=== PATIENT | male | born 1995 | race Caucasian/White ===

== ENCOUNTER 2016-04-26 07:36 | Emergency (ER) | payer BC ==
[~2016-04-26] VITALS: Ht 185.4 cm; Wt 109.1 kg
[2016-04-26 07:40] VITALS: TEMP 98.2
[2016-04-26] MEDS ORDERED: UNKNOWN ANTIBIOTIC (07:43)
[2016-04-26 08:28] LABS: BASO # 0.1 (0.0-0.2); BASO % 0.9 % (0.0-2.0); EOS # 0.1 (0.0-0.7); GRAN # 3.1 (1.4-6.5); GRAN % 54.4 % (42.2-75.2); HEMOGLOBIN 15.9 g/dl (13.5-18.0); LYMPH # 1.9 (1.2-3.4); LYMPH % 33.6 % (20.0-51.0); MEAN CELL VOLUME 92 fl (80.0-100.0); MEAN CORPUSCULAR HEMOGLOBIN 32 pg (27.0-31.0); MEAN CORPUSCULAR HGB CONC 35 g/dl (33.0-37.0); MEAN PLATELET VOLUME 10.6 fl (7.4-10.4); MONO # 0.6 (0.1-0.6); MONO % 9.8 % (1.7-9.3); PLATELET COUNT 307 K/mm3 (130-400); RED BLOOD COUNT 5.03 M/mm3 (4.20-5.60); WHITE BLOOD COUNT 5.7 K/mm3 (4.8-10.8)
[2016-04-26 08:36] LABS: ADJUSTED CALCIUM 9.3 mg/dL (8.4-10.2); ALBUMIN 4.6 gm/dL (3.5-5.0); BILIRUBIN,TOTAL 1.2 mg/dL (0.0-1.0); CALCIUM 9.8 mg/dL (8.4-10.2); CREATININE, serum 0.93 mg/dL (0.66-1.25); TOTAL PROTEIN 7.5 gm/dL (6.4-8.2)
[2016-04-26 09:32] LABS: PH 5 (5-8); SQUAMOUS EPITHELIAL None Seen /hpf; URINE APPEARANCE Hazy; URINE BACTERIA None Seen /hpf; URINE BILIRUBIN Negative (NEGATIVE); URINE BLOOD 3+ (NEGATIVE); URINE COLOR Yellow; URINE GLUCOSE Negative (NEGATIVE); URINE KETONE 1+ (NEGATIVE); URINE RBC >50 /hpf; URINE UROBILINOGEN Negative (NEGATIVE); URINE WBC 0-2 /hpf
[2016-04-26] MEDS ORDERED: AMOXICILLIN 8751 TAB PO (09:33)
[2016-04-26] MEDS ORDERED: FLOMAX 0.40.4 MG/CAP PO (10:47)
[2016-04-26] MEDS ORDERED: VOLTAREN 75 DR75 MG PO (10:47)
[2016-04-26] MEDS ORDERED: NORCO 325 MG-51 TAB PO (10:47)
[2016-04-26 11:05] VITALS: BP 120/71; PULSE 79
== END 2016-04-26 11:02 | disposition home or self-care (01) ==
LOC: COL.ER 07:36
PROVIDERS: Emergency Medicine
DX: N20.1 Calculus of ureter (principal)
CPT/HCPCS: J1885; J2765; J3010; J7030

== ENCOUNTER 2016-04-28 18:04 | Emergency (ER) | payer BC ==
[~2016-04-28] VITALS: Ht 185.4 cm; Wt 109.1 kg
[~2016-04-28 18:04] MED LIST: AMOXICILLIN 8751 TAB PO; FLOMAX 0.40.4 MG/CAP PO; NORCO 325 MG-51 TAB PO; UNKNOWN ANTIBIOTIC; VOLTAREN 75 DR75 MG PO
[2016-04-28 18:13] VITALS: BP 136/71; TEMP 98.3
[2016-04-28 20:14] LABS: PH 5 (5-8); SQUAMOUS EPITHELIAL None Seen /hpf; URINE APPEARANCE Hazy; URINE BACTERIA None Seen /hpf; URINE BILIRUBIN Positive (NEGATIVE); URINE BLOOD 3+ (NEGATIVE); URINE COLOR Yellow; URINE GLUCOSE Negative (NEGATIVE); URINE KETONE 2+ (NEGATIVE); URINE RBC 20-50 /hpf; URINE UROBILINOGEN Negative (NEGATIVE)
[2016-04-28 20:24] VITALS: PULSE 86
== END 2016-04-28 20:32 | disposition home or self-care (01) ==
LOC: COL.ER 18:04
PROVIDERS: Family Medicine
DX: N20.2 Calculus of kidney with calculus of ureter (principal); Z87.442 Personal history of urinary calculi

== ENCOUNTER 2017-09-11 10:20 | Observation (INO) | payer BC ==
[~2017-09-11] VITALS: Ht 185.4 cm; Wt 113.6 kg
[2017-09-11 10:51] LABS: BASO # 0.1 (0.0-0.2); BASO % 0.6 % (0.0-2.0); EOS # 0.2 (0.0-0.7); EOS % 1.6 % (0-4.0); GRAN # 6.3 (1.4-6.5); GRAN % 64.3 % (42.2-75.2); HEMATOCRIT 45.1 % (42.0-52.0); HEMOGLOBIN 16.4 g/dl (13.5-18.0); LYMPH # 2.3 (1.2-3.4); LYMPH % 23.5 % (20.0-51.0); MEAN CELL VOLUME 89 fl (80.0-100.0); MEAN CORPUSCULAR HEMOGLOBIN 33 pg (27.0-31.0); MEAN CORPUSCULAR HGB CONC 36 g/dl (33.0-37.0); MEAN PLATELET VOLUME 10.6 fl (7.4-10.4); MONO % 9.7 % (1.7-9.3); PLATELET COUNT 271 K/mm3 (130-400); RED BLOOD COUNT 5.05 M/mm3 (4.20-5.60); REDCELL DISTRIBUTION WIDTH-CV 11.8 % (11.5-14.5)
[2017-09-11 10:58] LABS: ALANINE AMINOTRANSFERASE 47 U/L (21-72); ALBUMIN 4.2 gm/dL (3.5-5.0); ALKALINE PHOSPHATASE 69 U/L (50-136); ANION GAP 12 mmol/L (7-16); AST,SGOT 49 U/L (15-37); BILIRUBIN,TOTAL 0.6 mg/dL (0.0-1.0); BLOOD UREA NITROGEN 14 mg/dL (9-20); CALCIUM 9.1 mg/dL (8.4-10.2); CARBON DIOXIDE 27 mmol/L (22-30); CHLORIDE 105 mmol/L (98-107); CREATININE, serum 0.85 mg/dL (0.66-1.25); GLUCOSE 105 mg/dL (74-106); POTASSIUM 4.1 mmol/L (3.4-5.0); SODIUM 144 mmol/L (137-145); TOTAL PROTEIN 7.6 gm/dL (6.4-8.2)
[2017-09-11 11:00] LABS: PARTIAL THROMBOPLASTIN TIME 35.6 SECONDS (26.0-37.0)
[2017-09-11 11:06] LABS: PROTHROMBIN TIME 11.7 SECONDS (9.7-12.8)
[2017-09-11] MEDS ORDERED: SUDAFED 12 HOU120 MG PO (11:13)
[2017-09-11 11:14] LABS: TROPONIN-I < 0.012 ng/mL (0.000-0.034)
[2017-09-11 16:03] VITALS: BP 116/76; PULSE 86; TEMP 98.6
[2017-09-11 19:11] VITALS: BP 136/71; PULSE 81; TEMP 98.6
[2017-09-12 00:11] VITALS: BP 121/74; PULSE 72; TEMP 98
[2017-09-12 03:13] VITALS: BP 108/57; PULSE 62; TEMP 98.2
[2017-09-12 08:50] VITALS: BP 127/77; PULSE 73; TEMP 98.2
[2017-09-12 11:31] VITALS: BP 128/79; PULSE 75; TEMP 98.5
== END 2017-09-12 15:01 | disposition home or self-care (01) ==
LOC: COL.ER 10:20 → MEDICAL 12:05
PROVIDERS: Family Medicine
DX: I48.91 Unspecified atrial fibrillation (principal); Z88.2 Allergy status to sulfonamides; Z79.01 Long term (current) use of anticoagulants